=== PATIENT | female | born 1945 | race Caucasian/White ===

== ENCOUNTER 2017-06-07 13:17 | Emergency (ER) | payer MEDICARE ==
[2017-06-07] MEDS ORDERED: Iopamidol 370 76% 100 ML VIAL ONE (13:38)
[2017-06-07 14:15] LABS: #Lymphocytes 2.1 thou/uL (1.20-3.40); #Monocytes 0.5 thou/uL (0.11-0.59); %Basophils 0.4 % (0.0-1.0); %Eosinophils 0.1 % (0.0-10.0); %Lymphocytes 37.5 % (21.0-51.0); %Monocytes 8.4 % (0.0-10.0); Mean Platelet Volume 5.9 fL (7.4-10.4); Red Blood Cell (RBC) Count 4.01 mill/uL (4.20-5.40); White Blood Cell (WBC) Count 5.6 thou/uL (4.8-10.8)
[2017-06-07 14:19] LABS: Bilirubin Negative (Negative); Blood, Urine Negative (Negative); Glucose, Urine (Dipstick) Negative (Negative); Ketone, Urine Negative (Negative); Nitrite Negative (Negative); Protein, Urine (Dipstick) Negative (Neg-Trace); Urobilinogen 0.2 mg/dL (0.2-1.0)
[2017-06-07 14:37] LABS: ALT (SGPT) 23 U/L (8-55); AST (SGOT) 25 U/L (5-34); Alkaline Phosphatase 101 U/L (40-150); Anion Gap 11 mmol/L (10-20); BUN (Urea Nitrogen) 22 mg/dL (9.8-20.1); Bilirubin, Total 0.2 mg/dL (0.2-1.2); Calc. Creatinine Clearance 0 mL/min (70-130); Calcium 9.9 mg/dL (7.8-10.44); Carbon Dioxide 31 mmol/L (23-31); Chloride 102 mmol/L (98-107); Estimated GFR-MDRD 54; Globulin 3.3 g/dL (2.4-3.5); Lipase 82 U/L (8-78); Protein, Total 7.3 g/dL (6.0-8.3)
[2017-06-07 14:40] LABS: Troponin I Less than 0.010 ng/mL (< 0.028)
--- NOTE | 2017-06-07 15:59 | CT ---
CT OF ABDOMEN AND PELVIS PERFORMED WITH COTNRAST ENHANCEMENT: HISTORY: Intermittent left-sided abdomen pain x 3 days. FINDINGS: Lung bases show some chronic-appearing change. Small hiatal hernia is noted. Small hypodensity along the medial aspect of the right lobe of the liver, statistically most likely a cyst. The spleen, pancreas, and gallbladder regions appear unremarkable. Right and left adrenal glands and right and left kidneys are normal in size. Tiny hypodensity involv ing the left kidney is statistically most likely a small cyst. There is no significant periaortic or mesenteric lymphadenopathy. CT OF PELVIS PERFORMED WITH CONTRAST ENHANCEMENT: There is minimal sigmoid diverticulosis noted. I do not appreciate any inflammatory process. Append ix is normal. Review of osseous structures shows arthritic changes of the spine and postoperative changes at L5-S1. IMPRESSION: 1. Sigmoid diverticulosis. 2. Small hiatal hernia. 3. No acute abnormalities of the abdomen or pelvis. POS: ARLEN
--- NOTE | 2017-07-04 13:26 | EKG ---
Test Reason : Blood Pressure : / mmHG Vent. Rate : 066 BPM Atrial Rate : 066 BPM P-R Int : 136 ms QRS Dur : 092 ms QT Int : 406 ms P-R-T Axes : 111 -19 -24 degrees QTc Int : 425 ms Normal sinus rhythm Low voltage QRS Nonspecific T wave abnormality Abnormal ECG Confirmed by DANE HARRIS ([id number]), photographic editor RY MCGEE ([id number]) on 07/04/2017 1:26:13 PM Referred By: Confirmed By:DANE HARRIS
== END 2017-06-07 16:34 | disposition home or self-care (01) ==
LOC: ERS 13:17
DX: R10.13 Epigastric pain (principal); I10 Essential (primary) hypertension; F31.9 Bipolar disorder, unspecified; Z79.82 Long term (current) use of aspirin; Z79.899 Other long term (current) drug therapy
CPT/HCPCS: 36415; 74177; 80053; 81003; 82553; 83690; 84484; 85025; 93005

== ENCOUNTER 2018-05-19 08:31 | Outpatient (CLI) | payer MEDICARE ==
--- NOTE | 2018-05-19 13:41 | NM ---
CARDIAC SPECT: HISTORY: A 72-year-old female with chest pain, hypertension, and dyslipidemia. TECHNIQUE: A myocardial perfusion scan was performed using the single isotope one-day protocol with technetium 9 9m sestamibi, and 9 millicuries was injected intravenously for the rest exam, followed by 30 millicur ies for the stress study. Pharmacologic stress with adenosine was monitored and interpreted by Dr. Maggie castro. FINDINGS: Homogeneous tracer distribution is seen in the myocardial segments on stress and rest images without fixed or reversible defects. The TID ratio is 1.37. GATED SPECT LVEF: 80% WALL MOTION EXAM: Normal. IMPRESSION: TID ratio is 1.37. Clinical correlation is recommended. POS: CHATA
[2018-05-19] MEDS ORDERED: ADENOSINE 60 MG/20 ML VIAL ONE (16:31)
== END 2018-05-19 08:32 | disposition home or self-care (01) ==
LOC: NM 08:31
PROVIDERS: ATTEND Family Medicine
DX: R07.9 Chest pain, unspecified (principal)
CPT/HCPCS: 78452; 93017; A9500; J0153

== ENCOUNTER 2019-01-26 21:20 | Inpatient (IN) | payer MEDICARE ==
[~2019-01-26 21:20] MED LIST: ISOVUE-370 76%-LOCM 1 ML ONE
[2019-01-26] MEDS ORDERED: Ondansetron PF 4 MG/2 ML Vial ONE (21:51)
[2019-01-26 22:20] LABS: Band 17 % (5-11); Hemoglobin 12.6 g/dL (12.0-16.0); Lymphocytes 10 % (21-51); MDiff Complete? YES; Mean Corpuscular HGB CONC 32.2 g/dL (32.0-36.0); Mean Corpuscular Hemoglobin 32.5 pg (27.0-31.0); Monocytes 3 % (0-10); Neutrophil 70 % (42-75); Platelet Count 225 thou/uL (130-400); RBC Distribution Width 11.8 % (11.5-14.5); Red Blood Cell (RBC) Count 3.89 mill/uL (4.20-5.40); White Blood Cell (WBC) Count 5.7 thou/uL (4.8-10.8)
[2019-01-26 22:25] LABS: ALT (SGPT) 16 U/L (8-55); AST (SGOT) 20 U/L (5-34); Alkaline Phosphatase 101 U/L (40-150); Anion Gap 14 mmol/L (10-20); BUN (Urea Nitrogen) 24 mg/dL (9.8-20.1); Bilirubin, Total 0.4 mg/dL (0.2-1.2); Calc. Creatinine Clearance 0 mL/min (70-130); Calcium 9.8 mg/dL (7.8-10.44); Carbon Dioxide 28 mmol/L (23-31); Chloride 100 mmol/L (98-107); Estimated GFR-MDRD 62; Glucose 145 mg/dL (83-110); Lipase 56 U/L (8-78); Potassium 4.3 mmol/L (3.5-5.1); Sodium 138 mmol/L (136-145)
--- NOTE | 2019-01-26 22:57 | CT ---
CT abdomen and pelvis with IV contrast. Oral contrast was not administered. INDICATIONS: Abdominal pain COMPARISON: 06/07/2017 FINDINGS: Lung bases are clear Mild prominence of the intra and extrahepatic biliary ducts. Mild gallbladder distention. Spleen and pancreas unremarkable. Stomach and duodenum appear unremarkable. Adrenal glands appear normal. Kidneys appear unremarkable. Collecting structures and urinary bladder appear unremarkable. Small bowel loops are normal caliber and exhibit normal fold pattern. Appendix not definitely identified. Colon is unremarkable. Aorta is normal caliber. No evidence of retroperitoneal or mesenteric adenopathy. Patient appears to be post hysterectomy. Subcutaneous tissues, abdominal wall, and muscular structures appear unremarkable. Osseous structures appear unremarkable. IMPRESSION: Mild prominence of the intra and extrahepatic biliary ducts with gallbladder distention. No evidence of acute process.
--- NOTE | 2019-01-27 00:08 | ULT ---
GALLBLADDER ULTRASOUND: Date: 01/26/19 INDICATION: Right upper quadrant pain. FINDINGS: At least one echogenic mobile gallstone is seen within the gallbladder lumen. There is pericholecysti c edema. Gallbladder wall thickness is normal. The common duct is normal caliber. Technologist descri bes a positive Hill's sign. Small cyst in right lobe of liver. Pancreas is partially imaged and appears unremarkable. Right kidney shows mild fullness of the collec ting structures. IMPRESSION: 1. Cholelithiasis. Positive Hill's sign with evidence of pericholecystic edema. 2. Mild prominence to right renal collecting structures. POS: ARLEN
--- NOTE | 2019-01-27 01:23 | PDOC.FPRHP ---
- History of Present Illness Chief Complaint: Abdominal Pain History of Present Illness: 73yo female presents c/o abdominal pain. Daughter reports pt has dementia and bipolar disorder. She states that she developed sharp 10/10 abdominal pain tonight around 1700. This was accompanied by nausea, vomiting, and diarrhea. Pt and daughter states that pt has had symptoms like this before recently but never this bad. Workup in the ED confirmed cholecystitis which was complicated by hypotension that was responsive to fluids. Surgery consulted and said the pt will be put on for a lap estela later today. PMHx of HTN, HLD, Bipolar, and dementia. She denies . ED Course: ED: hypotension that responded to 1L NS bolus, CT abdomen and RUQ US that confirmed cholecystitis - Allergies/Adverse Reactions Allergies Allergy/AdvReac Type Severity Reaction Status Date / Time No Known Allergies Allergy Unverified 01/27/19 02:54 - Home Medications Medication Instructions Recorded Confirmed Type Aspirin [Ecotrin] 81 mg PO DAILY 01/27/19 01/27/19 History Donepezil HCl 1 tab PO BID 01/27/19 01/27/19 History Lamotrigine [lamoTRIgine] 1 tab PO HS 01/27/19 01/27/19 History Levothyroxine Sodium [Synthroid] 75 mcg PO DAILY 01/27/19 01/27/19 History Meloxicam [Mobic] 1 tab PO DAILY 01/27/19 01/27/19 History Memantine HCl 1 tab PO BID 01/27/19 01/27/19 History Omeprazole 20 mg PO DAILY 01/27/19 01/27/19 History Oxybutynin Chloride [Oxybutynin 5 mg PO DAILY 01/27/19 01/27/19 History Chloride ER] QUEtiapine Fumarate [Seroquel] 50 mg PO HS 01/27/19 01/27/19 History Simvastatin [Zocor] 1 tab PO HS 01/27/19 01/27/19 History Venlafaxine HCl [Venlafaxine HCl 2 cap PO DAILY 01/27/19 01/27/19 History ER] - History PMHx: hyperlipidemia, dementia, bipolar, hypothyroidism PSHx: thyroidectomy, back surgery, bunionectomies, hysterectomy, wrists surgery , lumpectomy FHx: none Social: quit smoking 15 years ago, occassional alcohol use, lives @ dependent living home - Review of Systems General: reports: fever/chills, weight/appetite/sleep changes (decreased appetite) Eyes: denies: eye pain, vision changes ENT: denies: nasal congestion, rhinorrhea Respiratory: denies: cough, shortness of breath Cardiovascular: denies: chest pain, edema Gastrointestinal: reports: nausea, vomiting, diarrhea, abdominal pain Genitourinary: denies: dysuria, polyuria Skin: denies: rashes, jaundice Musculoskeletal: denies: tenderness, swelling Neurological: denies: syncope, weakness - Vital signs BP: [92/59] HR: [72] RR: [18] Tmax: [98.9] Pox: [100]% on [room air] Wt: [] - Physical Exam Constitutional: NAD, awake, alert and oriented, well developed HEENT: normocephalic and atraumatic, EOMI, no scleral icterus Neck: supple, FROM Heart: RRR, normal S1/S2, no murmurs/rubs/gallops, pulses present, no edema Lungs: CTAB, no respiratory distress Abdomen: soft Musculoskeletal: normal structure, normal tone Neurological: no focal deficit -Neurological: Memory impairment, chronic per daughter Skin: no rash/lesions, no jaundice Heme/Lymphatic: no unusual bruising or bleeding Psychiatric: normal mood and affect FMR H&P: Results - Labs Result Diagrams: 01/27/19 04:35 01/27/19 04:35 Lab results: WBC 5.7 thou/uL (4.8-10.8) 01/26/19 21:50 Hgb 12.6 g/dL (12.0-16.0) 01/26/19 21:50 Hct 39.3 % (36.0-47.0) 01/26/19 21:50 MCV 101.0 fL (78.0-98.0) H 01/26/19 21:50 Plt Count 225 thou/uL (130-400) 01/26/19 21:50 Band Neuts % (Manual) 17 % (5-11) H 01/26/19 21:50 Sodium 138 mmol/L (136-145) 01/26/19 21:50 Potassium 4.3 mmol/L (3.5-5.1) 01/26/19 21:50 Chloride 100 mmol/L (98-107) 01/26/19 21:50 Carbon Dioxide 28 mmol/L (23-31) 01/26/19 21:50 BUN 24 mg/dL (9.8-20.1) H 01/26/19 21:50 Creatinine 0.89 mg/dL (0.6-1.1) 01/26/19 21:50 Glucose 145 mg/dL (83-110) H 01/26/19 21:50 Lactic Acid 2.0 mmol/L (0.5-2.2) 01/26/19 21:50 Calcium 9.8 mg/dL (7.8-10.44) 01/26/19 21:50 Total Bilirubin 0.4 mg/dL (0.2-1.2) 01/26/19 21:50 AST 20 U/L (5-34) 01/26/19 21:50 ALT 16 U/L (8-55) 01/26/19 21:50 Alkaline Phosphatase 101 U/L (40-150) 01/26/19 21:50 Serum Total Protein 7.0 g/dL (6.0-8.3) 01/26/19 21:50 Albumin 4.0 g/dL (3.4-4.8) 01/26/19 21:50 Lipase 56 U/L (8-78) 01/26/19 21:50 - Radiology Interpretation CT scan - abdomen Status: report reviewed by me (Intra/extraheptic duct congestion w/ gallbladder distension) US - abdomen Status: report reviewed by me (RUQ - cholelithiasis and pericholecystic fluid) FMR H&P: A/P - Problem List (1) Cholelithiasis and acute cholecystitis without obstruction Current Visit: Yes Status: Acute Code(s): K80.00 - CALCULUS OF GALLBLADDER W ACUTE CHOLECYST W/O OBSTRUCTION - Plan Cholecystitis Abd pain with N/V, CT abd: intra/extrahepatic duct prominence with GB distention , US RUQ: cholelithiasis with pericholecystic fluid. -Surgery consulted, plan for cholecystectomy tomorrow -Started on Zosyn -IV fluids Hypotension PMHx of HTN, initial BP in ED was 72/47 - responsive to 1L bolus -> 107/71 -Hold home BP meds at this time -Cont IV fluid resuscitation -Encourage PO intake as tolerated Hyperlipidemia FMR H&P: Upper Level - Pertinent history 73 year old female presents with sudden onset abdominal pain around 17:00. Patient poor historian secondary to dementia. Patient's daughter present at bedside providing information. Patient reportedly lives at an independent living center. She is fairly self sufficient per the daughter. Patient unable to describe location of pain or characterize pain. Patient has not had this pain before. She texted her daughter around 18:00 that she was not feeling well and was going to head to bed early. The daughter thought that was odd given the time. She later texted back at 21:00 saying that she was in severe pain and could no longer tolerate it which is what prompted her visit to the ED. She had several episodes of NBNB emesis and continues to have nausea. She had one episode of non-bloody diarrhea. Per daughter, patient has not had fever or chills recently. She was doing fine up until tonight. Patient does have bipolar disorder and dementia for which she takes several meds. She reportedly does not do well when these meds are skipped. - Pertinent findings General: Alert and communicative. She requested her daughter do the talking. HEENT: Atraumatic, normocephalic. EOMI. Card: RRR. No murmur. Resp: CTA-BL. No acute respiratory distress. Abdomen: Moderately tender to palpation throughout abdomen. Ext: No edema - Plan Date/Time: 01/27/19 0116 IPam, have evaluated this patient and agree with findings/plan as outlined by software engineer intern resident. Pertinent changes/additions are listed here. Cholecystitis - CT abdomen/pelvis: mild prominence of intrahepatic and extrahepatic biliary ducts with gallbladder distention - RUQ abdomen: Cholelithiasis with pericholecystic fluid - General surgery consulted; appreciate recs. Plan for cholecystectomy in AM - NPO in preparation for surgery - Continue Zosyn (01/26) - IVF LR @ 125 mL/hr - Procal pending - Episodes of hypotension s/p 1L NS bolus; will give additional 500 mL and start on maintenance IVF - Advised to call if patient endorsed nausea as patient has long QT and would like to monitor carefully when patient receiving QT prolonging drugs QT prolongation - Noted on EKG - Refrain from using QT prolonging agents if possible/monitor closely Bandemia - 17% bands - Likely 2/2 cholecystitis - Will trend CBC - Procal pending Hypotension - May be secondary to infection and morphine use - Will monitor closely. Additional boluses if needed - Maintenance IVF Hypothyroidism - Continue home medications - s/p thyroidectomy Dementia - Continue home meds Bipolar - Continue home meds HLD - Continue home meds DVT: SCD's Code Status: Full code Dispo: Admit to surgical unit. Anticipate lOS >48 hours. Addendum - Attending - Attending Attestation Date/Time: 01/27/19 3797 I personally evaluated the patient and discussed the management with Dr. Zhang. I agree with the History, Examination, Assessment and Plan documented above with any addition or exceptions noted below. The patient presented with acute onset of abdominal pain, nausea, vomiting and diarrhea. Imaging is consistent with cholecystitis. Will continue morphine for pain control. Gen surg has been consulted and will remove the gallbladder later today.
[2019-01-27] MEDS ORDERED: Morphine 4 MG/ML VIAL ONE (02:09)
[2019-01-27 02:54] VITALS: BMI 24.9
[2019-01-27] MEDS ORDERED: Sodium Chloride 0.9% 1,000 ML IV SCH (03:00)
[2019-01-27] MEDS ORDERED: Morphine 4 MG/ML VIAL SLOW IVP PRN ×2 (03:04→12:54)
[2019-01-27] MEDS ORDERED: Ondansetron ODT 4 MG TAB SL PRN (03:04)
[2019-01-27] MEDS ORDERED: Ondansetron PF 4 MG/2 ML Vial IVP PRN (03:04)
[2019-01-27] MEDS: Lactated Ringer's 1,000 ML IV SCH ×2 (03:07→12:33)
--- NOTE | 2019-01-27 04:34 | PDOC.EVN ---
Event Note - Event Note Event Note: Nurse notified team of dropping BP's after receiving morphine 4 mg. Will decrease to 2 mg prn for pain and discussed notifying team before next administration of morphine. Also, ordered 500 cc NS bolus. Nurse discussed administration of night time medications and daughter is fine waiting to restart medications until after surgery. Daughter was initially concerned her mother not receiving medications for bipolar/depression. Appreciate nursing staff's help. Reddy Lewis,
[2019-01-27] MEDS ORDERED: Morphine 2 MG/ML SYRINGE SLOW IVP PRN ×3 (04:48→12:54)
[2019-01-27] MEDS ORDERED: Sodium Chloride 0.9% 500 ML IVPB SCH (05:00)
[2019-01-27 05:24] LABS: Band 30 % (5-11); Lymphocytes 8 % (21-51); MDiff Complete? YES; Mean Corpuscular HGB CONC 32.1 g/dL (32.0-36.0); Mean Corpuscular Hemoglobin 32.5 pg (27.0-31.0); Mean Platelet Volume 6.3 fL (7.4-10.4); Monocytes 2 % (0-10); Neutrophil 60 % (42-75); Platelet Count 202 thou/uL (130-400); RBC Distribution Width 11.9 % (11.5-14.5); Red Blood Cell (RBC) Count 3.38 mill/uL (4.20-5.40); White Blood Cell (WBC) Count 7.2 thou/uL (4.8-10.8)
[2019-01-27 05:27] LABS: ALT (SGPT) 15 U/L (8-55); AST (SGOT) 24 U/L (5-34); Albumin 3.5 g/dL (3.4-4.8); Alkaline Phosphatase 80 U/L (40-150); Anion Gap 12 mmol/L (10-20); BUN (Urea Nitrogen) 21 mg/dL (9.8-20.1); Bilirubin, Total 0.5 mg/dL (0.2-1.2); Calc. Creatinine Clearance 64 mL/min (70-130); Carbon Dioxide 25 mmol/L (23-31); Chloride 104 mmol/L (98-107); Estimated GFR-MDRD 78; Globulin 2.6 g/dL (2.4-3.5); Glucose 116 mg/dL (83-110); Potassium 3.7 mmol/L (3.5-5.1); Protein, Total 6.1 g/dL (6.0-8.3); Sodium 137 mmol/L (136-145)
[2019-01-27] MEDS: Piperacillin/Tazobactam 4.5 GM in Sodium Chloride 0.9% 100 ML IVPB SCH ×2 (05:28→14:27)
[2019-01-27] MEDS: Levothyroxine Sodium 75 MCG TAB PO SCH (05:29)
[2019-01-27] MEDS: Oxybutynin ER 5 MG TAB PO SCH (08:19)
[2019-01-27] MEDS: Meloxicam 7.5 MG TAB PO SCH (08:19)
[2019-01-27] MEDS: Aspirin 81 mg Enteric Coated Tablet PO SCH (08:19)
[2019-01-27] MEDS: Donepezil HCl 10 MG TAB PO SCH ×2 (08:19→20:18)
[2019-01-27] MEDS: Venlafaxine HCl XR 150 MG CAP PO SCH (08:19)
[2019-01-27] MEDS: Acetaminophen 325 MG TAB PO PRN ×2 (08:28→20:18)
[2019-01-27] MEDS ORDERED: cefOXitin Sodium/Dextrose,Iso 2 GM in Premix Bag 1 BAG IVPB SCH (08:30)
[2019-01-27] MEDS ORDERED: Fentanyl 100 MCG/2 ML VIAL ONE (11:06)
[2019-01-27] MEDS ORDERED: Bupivacaine/Epinephrine 0.25% 30 ML VIAL ONE (11:24)
[2019-01-27] MEDS ORDERED: Sodium Chloride 0.9% 100 ML ONE (11:34)
[2019-01-27] MEDS ORDERED: cefOXitin 2 GM VIAL ONE (11:34)
[2019-01-27] MEDS ORDERED: Fentanyl 250 MCG/5 ML VIAL ONE (11:39)
[2019-01-27] MEDS ORDERED: Mag-Al 1200 mg/1200 mg/30 ML UDCUP PO PRN (12:54)
[2019-01-27] MEDS ORDERED: hydrALAZINE 20 MG/ML VIAL SLOW IVP PRN (12:54)
[2019-01-27] MEDS ORDERED: Calcium Carbonate 500 MG ChewTAB PO PRN (12:54)
[2019-01-27] MEDS ORDERED: Dextrose 50% Abboject 50 ML SYRINGE SLOW IVP PRN (12:54)
[2019-01-27] MEDS ORDERED: Dextrose 5% in Water 1,000 ML IV PRN (12:54)
[2019-01-27] MEDS ORDERED: Promethazine HCl 25 MG/ML VIAL IM PRN (12:54)
[2019-01-27] MEDS ORDERED: HYDROcodone/Acetaminophen 10/325 mg Tablet PO PRN (12:54)
[2019-01-27] MEDS: D5 1/2 NS w/20 mEq KCL 1,000 ML IV SCH ×2 (14:27→23:25)
--- NOTE | 2019-01-27 15:06 | OP ---
DATE OF PROCEDURE: 01/27/2019 PREOPERATIVE DIAGNOSIS: Acute cholecystitis. PROCEDURE PERFORMED: Laparoscopic cholecystectomy. INDICATIONS: The patient is a 73-year-old female, who presented with severe right upper quadrant pain radiating to back, associated with nausea. Ultrasound CT showed distended gallbladder with large stones impacted in the neck of the gallbladder. FINDINGS: Distended gallbladder, multiple adhesions, two large stones small cystic duct. DESCRIPTION OF PROCEDURE: After informed consent was obtained, the patient was taken to the preop area, where she was injected with a 0.5 mL of IC-Green to allow for visualization of the main bile ducts. This was chased by 10 mL of normal saline. She was then taken to the operating room, where she underwent general endotracheal anesthesia. She was placed in supine position. Abdomen was prepped and draped in usual fashion. Local anesthesia infiltrated subcutaneously and deep and a 12 mm incision was performed subumbilical. Subcu divided sharply. The fascia was grasped with 2 stay sutures of 0 Vicryl placed through side of midline. Midline incised. Digital palpation revealed no local adhesions. A blunt 12 trocar inserted. Pneumoperitoneum was created to a pressure of 15 mmHg. A 0 degree laparoscope inserted under direct vision. Three 5 mm ports were placed subcostally. The gallbladder was very distended. There were multiple adhesions to it. The adhesions were taken down sharply. Then, the gallbladder was punctured and 150 mL of bile removed into the gallbladder. The gallbladder was grasped, advanced superiorly, and the dissection was performed to dissect out the cystic duct artery in critical view. Special camera was then actuated that allowed us to visualized the bile ducts and confirmed that the common duct was separate from this cystic duct. The cystic duct was patent. The cystic duct was triply ligated with hemoclips and divided. The artery triply ligated with hemoclips and divided. The gallbladder removed from its fossa utilizing electrocautery. It was placed in endosac and removed from the abdomen in the endosac. Hemostasis assured. Trocars and retractors removed. The fascia closed with interrupted 0 Vicryl suture. The skin closed with interrupted 4-0 Rapide. Dermabond applied. The patient tolerated the procedure well, transferred to Recovery in good condition. Sponge and needle count verified correct x2. Job ID: [id number]
[2019-01-27] MEDS: Ketorolac Tromethamine 30 MG/ML VIAL IVP SCH ×2 (17:49→23:21)
[2019-01-27] MEDS: cefOXitin Sodium/Dextrose,Iso 2 GM in Premix Bag 1 BAG IVPB SCH (20:17)
[2019-01-27] MEDS: lamoTRIgine 100 MG TAB PO SCH (20:17)
[2019-01-27] MEDS: Atorvastatin Calcium 10 MG TAB PO SCH (20:18)
[2019-01-27] MEDS: Famotidine 20 MG TAB PO SCH (20:18)
[2019-01-27] MEDS: Famotidine/PF 20 mg/2ml Vial SLOW IVP SCH (20:19)
[2019-01-28] MEDS ORDERED: Sodium Chloride 0.9% 500 ML IV SCH ×2 (00:30→01:30)
--- NOTE | 2019-01-28 00:52 | PDOC.EVN ---
Event Note - Event Note Event Note: Was called by nurse for BP of 77/40. Ordered 500 bolus. Saw pt. Asymptomatic. Abdominal pain is 3/10. Denies fever, chills, diaphoresis, or SOB. Will recheck BP following fluids.
[2019-01-28] MEDS: cefOXitin Sodium/Dextrose,Iso 2 GM in Premix Bag 1 BAG IVPB SCH ×2 (04:16→13:48)
[2019-01-28 04:53] LABS: #Lymphocytes 0.7 thou/uL (1.20-3.40); #Monocytes 0.2 thou/uL (0.11-0.59); #Neutrophils 4.2 thou/uL (1.40-6.50); %Basophils 0.3 % (0.0-1.0); %Eosinophils 0.1 % (0.0-10.0); %Lymphocytes 13.8 % (21.0-51.0); %Monocytes 3.9 % (0.0-10.0); %Neutrophils 81.8 % (42.0-75.0); Hemoglobin 9.8 g/dL (12.0-16.0); Mean Corpuscular HGB CONC 33.5 g/dL (32.0-36.0); Mean Platelet Volume 6.1 fL (7.4-10.4); Platelet Count 168 thou/uL (130-400); RBC Distribution Width 11.9 % (11.5-14.5); Red Blood Cell (RBC) Count 2.89 mill/uL (4.20-5.40); White Blood Cell (WBC) Count 5.2 thou/uL (4.8-10.8)
[2019-01-28 05:14] LABS: ALT (SGPT) 44 U/L (8-55); AST (SGOT) 59 U/L (5-34); Albumin 2.7 g/dL (3.4-4.8); Alkaline Phosphatase 65 U/L (40-150); Anion Gap 6 mmol/L (10-20); BUN (Urea Nitrogen) 10 mg/dL (9.8-20.1); Bilirubin, Total 0.3 mg/dL (0.2-1.2); Calc. Creatinine Clearance 65 mL/min (70-130); Calcium 8.2 mg/dL (7.8-10.44); Carbon Dioxide 25 mmol/L (23-31); Chloride 112 mmol/L (98-107); Estimated GFR-MDRD 81; Globulin 2.3 g/dL (2.4-3.5); Glucose 109 mg/dL (83-110); Lipase 9 U/L (8-78); Potassium 3.7 mmol/L (3.5-5.1); Sodium 139 mmol/L (136-145)
[2019-01-28] MEDS: Levothyroxine Sodium 75 MCG TAB PO SCH (05:28)
[2019-01-28] MEDS: Ketorolac Tromethamine 30 MG/ML VIAL IVP SCH ×4 (05:28→23:07)
[2019-01-28] MEDS: D5 1/2 NS w/20 mEq KCL 1,000 ML IV SCH ×3 (06:30→20:10)
--- NOTE | 2019-01-28 07:24 | PDOC.FM ---
- Subjective Subjective: Pt states her abdominal pain is much improved. She has tolerated full liquids well. Denies nausea and vomiting. - Objective MAR Reviewed: Yes Vital Signs & Weight: Vital Signs (12 hours) Temp Pulse Resp BP Pulse Ox 01/28/19 04:27 98.6 F 75 16 80/43 L 94 L 01/28/19 02:35 87 81/49 L 01/28/19 01:31 76/42 L 01/27/19 23:57 98.6 F 80 16 77/40 L 94 L 01/27/19 20:00 98.5 F 88 16 90/55 L 95 Weight Weight 57.878 kg I&O: 01/27/19 01/28/19 01/29/19 06:59 06:59 06:59 Intake Total 894 4540 Balance 894 4540 Result Diagrams: 01/28/19 04:22 01/28/19 04:22 Phys Exam - Physical Examination Constitutional: NAD HEENT: moist MMs Neck: no JVD Respiratory: no wheezing, clear to auscultation bilateral Cardiovascular: RRR, no significant murmur Gastrointestinal: soft, positive bowel sounds Laproscopic incisions with out signs of infection Musculoskeletal: no edema, pulses present Neurological: moves all 4 limbs Deviation from normal: confused but baseline Skin: cap refill <2 seconds Dx/Plan (1) Cholelithiasis and acute cholecystitis without obstruction Code(s): K80.00 - CALCULUS OF GALLBLADDER W ACUTE CHOLECYST W/O OBSTRUCTION Status: Acute - Plan Plan: This is a 73 yo female with a pmh of HLD, dementia, bipolar, and hypothyroidsm Acute cholecystitis with cholelithiasis, s/p cholecystectomy -Pain control with tylenol and morphine -Advance diet -plan for discharge today barring no events Hypotension -Pt given two 500 L bolus of NS with improving BPs HLD -Continue home meds Dementia -Continue home meds Bipolar -Continue home meds Hypothyroidism -Continue home meds. Addendum - Attending - Attending Attestation Date/Time: 01/28/19 1240 I personally evaluated the patient and discussed the management with Dr. Jones. I agree with the History, Examination, Assessment and Plan documented above with any addition or exceptions noted below. Pt doing well s/p lap estela. Tolerated regular breakfast. Will d/c home.
--- NOTE | 2019-01-28 09:17 | PRG ---
DATE OF SERVICE: 01/28/2019 SUBJECTIVE: The patient states she is upset because she had a very loose bowel movement and had an accident. She needs to be cleaned up. She says she has no pain, no nausea or vomiting. She is tolerating diet well. OBJECTIVE: VITAL SIGNS: Temperature 98.6, pulse 75, blood pressure 80/43. GENERAL: She is sitting up. She is somewhat confused, which is baseline for her. ABDOMEN: Soft, nondistended. The incisions are healing well. LABORATORY DATA: White count 5.2, H and H 9.8 and 29, and platelet count 168. Electrolytes are fine. ASSESSMENT: Status post cholecystectomy with dementia. PLAN: No further surgical treatment needed. Further treatment per medical team. Job ID: [id number]
[2019-01-28] MEDS: Aspirin 81 mg Enteric Coated Tablet PO SCH (09:45)
[2019-01-28] MEDS: Famotidine 20 MG TAB PO SCH ×2 (09:45→20:15)
[2019-01-28] MEDS: Venlafaxine HCl XR 150 MG CAP PO SCH (09:45)
[2019-01-28] MEDS: Meloxicam 7.5 MG TAB PO SCH (09:45)
[2019-01-28] MEDS: Oxybutynin ER 5 MG TAB PO SCH (09:46)
[2019-01-28] MEDS: Donepezil HCl 10 MG TAB PO SCH ×2 (09:46→20:16)
[2019-01-28] MEDS: Famotidine/PF 20 mg/2ml Vial SLOW IVP SCH ×2 (10:02→20:16)
[2019-01-28] MEDS: Enoxaparin Sodium 40 MG/0.4 ML SYRINGE SC SCH (10:02)
[2019-01-28] MEDS: HYDROcodone/Acetaminophen 10/325 mg Tablet PO PRN (13:44)
[2019-01-28] MEDS: cefTRIAXone\\ROCEPHIN 2 GM in Sodium Chloride 0.9% 100 ML IVPB SCH (17:04)
[2019-01-28] MEDS ORDERED: Piperacillin/Tazobactam 3.375 GM in Sodium Chloride 0.9% 100 ML IVPB SCH (18:00)
[2019-01-28] MEDS: lamoTRIgine 100 MG TAB PO SCH (20:13)
[2019-01-28] MEDS: Atorvastatin Calcium 10 MG TAB PO SCH (20:15)
[2019-01-28] MEDS: cefOXitin 2 GM in Sodium Chloride 0.9% 100 ML IVPB SCH (20:59)
[2019-01-28 23:12] LABS: Bacteria/HPF None Seen HPF (None Seen); Mucous/LPF Rare LPF (<2+); Squamous Epithelial None Seen HPF (0-3); WBC/HPF 0-3 HPF (0-3)
[2019-01-29] MEDS: cefOXitin 2 GM in Sodium Chloride 0.9% 100 ML IVPB SCH ×2 (03:34→11:52)
[2019-01-29] MEDS: D5 1/2 NS w/20 mEq KCL 1,000 ML IV SCH ×2 (05:29→14:29)
[2019-01-29] MEDS: Ketorolac Tromethamine 30 MG/ML VIAL IVP SCH ×2 (05:32→11:51)
[2019-01-29] MEDS: Levothyroxine Sodium 75 MCG TAB PO SCH (05:33)
--- NOTE | 2019-01-29 07:14 | PDOC.FM ---
- Subjective Subjective: No complaints overnight. She denies fever, chills, nausea, vomiting, or chest pain. Reports some abdominal pain with movement. - Objective MAR Reviewed: Yes Vital Signs & Weight: Vital Signs (12 hours) Temp Pulse Resp BP Pulse Ox 01/29/19 05:46 94 L 01/29/19 03:42 98.8 F 80 16 100/62 94 L 01/28/19 23:46 98.9 F 97 16 99/66 95 01/28/19 20:05 98.9 F 82 16 107/61 94 L Weight Weight 57.878 kg I&O: 01/28/19 01/29/19 01/30/19 06:59 06:59 06:59 Intake Total 4540 1800 Balance 4540 1800 Result Diagrams: 01/28/19 04:22 01/28/19 04:22 Phys Exam - Physical Examination Constitutional: NAD HEENT: moist MMs Neck: no JVD Respiratory: no wheezing Mild crackles at base, likely atelectasis Cardiovascular: RRR, no significant murmur, no rub Gastrointestinal: soft, no distention, positive bowel sounds Appropriate ttp Musculoskeletal: no edema, pulses present Neurological: non-focal, moves all 4 limbs Psychiatric: A&O x 3 Skin: cap refill <2 seconds Dx/Plan (1) Cholelithiasis and acute cholecystitis without obstruction Code(s): K80.00 - CALCULUS OF GALLBLADDER W ACUTE CHOLECYST W/O OBSTRUCTION Status: Acute - Plan Plan: This is a 73 yo female with a pmh of HLD, dementia, bipolar, and hypothyroidsm Acute cholecystitis with cholelithiasis, POD2 cholecystectomy -Pain control with tylenol and morphine -Advance diet -plan for discharge today barring no events Bacteremia, 2/2 blood cultures show gram stain positive for gram negative cocci -Pending Culture and sensitivities -Currently on rocephin -Plan to consult ID for further recommendations Hypotension, stable -Pt given two 500 L bolus of NS with improving BPs HLD -Continue home meds Dementia -Continue home meds Bipolar -Continue home meds Hypothyroidism -Continue home meds. Addendum - Attending - Attending Attestation Date/Time: 01/29/19 5558 I personally evaluated the patient and discussed the management with Dr. Jones. I agree with the History, Examination, Assessment and Plan documented above with any addition or exceptions noted below. Patient with newly diagnosed bacteremia with 2/2 blood cultures positive. She will remain on IV antibiotics as we await final cultures and sensitivities. Consulted PT to help with ambulation.
[2019-01-29] MEDS: Donepezil HCl 10 MG TAB PO SCH ×2 (07:29→20:23)
[2019-01-29] MEDS: Oxybutynin ER 5 MG TAB PO SCH (07:29)
[2019-01-29] MEDS: Aspirin 81 mg Enteric Coated Tablet PO SCH (07:29)
[2019-01-29] MEDS: Famotidine 20 MG TAB PO SCH ×2 (07:29→20:23)
[2019-01-29] MEDS: Meloxicam 7.5 MG TAB PO SCH (07:29)
[2019-01-29] MEDS: Venlafaxine HCl XR 150 MG CAP PO SCH (07:29)
[2019-01-29] MEDS: Enoxaparin Sodium 40 MG/0.4 ML SYRINGE SC SCH (08:18)
[2019-01-29] MEDS: Famotidine/PF 20 mg/2ml Vial SLOW IVP SCH ×2 (09:26→20:23)
--- NOTE | 2019-01-29 09:47 | PRG ---
DATE OF SERVICE: 01/29/2019 SUBJECTIVE: The patient feels better today, less pain, tolerating a regular diet. OBJECTIVE: VITAL SIGNS: Temperature 98.7, pulse 87, blood pressure 112/78. GENERAL: She is awake, alert, in no apparent distress. HEENT: No jaundice. ABDOMEN: Soft. Nondistended. Incision is healing well. LABORATORY DATA: White count 5.2, H and H of 9.8 and 29, and platelet count of 168. Electrolytes, slightly elevated AST at 59, otherwise fine. ASSESSMENT: Status post laparoscopic cholecystectomy for acute cholecystitis. PLAN: Discharge when medically stable by the Family Practice service. Make sure to send her home on some oral antibiotics for 10 days. Follow up with me in 2 weeks. Job ID: [id number]
[2019-01-29] MEDS: cefTRIAXone\\ROCEPHIN 2 GM in Sodium Chloride 0.9% 100 ML IVPB SCH (15:06)
[2019-01-29] MEDS: HYDROcodone/Acetaminophen 10/325 mg Tablet PO PRN (15:54)
[2019-01-29] MEDS: metroNIDAZOLE 500 MG in Premix Bag 1 BAG IVPB SCH (18:30)
[2019-01-29] MEDS: lamoTRIgine 100 MG TAB PO SCH (20:22)
[2019-01-29] MEDS: Atorvastatin Calcium 10 MG TAB PO SCH (20:23)
[2019-01-30] MEDS: metroNIDAZOLE 500 MG in Premix Bag 1 BAG IVPB SCH ×4 (00:02→17:15)
[2019-01-30] MEDS: D5 1/2 NS w/20 mEq KCL 1,000 ML IV SCH ×2 (00:05→09:41)
[2019-01-30] MEDS: Levothyroxine Sodium 75 MCG TAB PO SCH (05:59)
--- NOTE | 2019-01-30 05:59 | PDOC.FM ---
- Subjective Subjective: Pt was worried about an episode of incontinence overnight. She was tearful regarding this incident. No other events overnight. - Objective MAR Reviewed: Yes Vital Signs & Weight: Vital Signs (12 hours) Temp Pulse Resp BP Pulse Ox 01/30/19 04:10 99.3 F 91 16 134/85 93 L 01/30/19 00:06 97.8 F 82 16 135/84 95 01/29/19 20:25 98.5 F 73 18 100/65 94 L 01/29/19 20:00 98.6 F 84 16 148/88 H 95 Weight Weight 57.878 kg I&O: 01/28/19 01/29/19 01/30/19 06:59 06:59 06:59 Intake Total 4540 1800 Balance 4540 1800 Result Diagrams: 01/28/19 04:22 01/28/19 04:22 Phys Exam - Physical Examination Constitutional: NAD HEENT: moist MMs Neck: no JVD Respiratory: no wheezing, clear to auscultation bilateral No crackles this AM, improved from yesterday Cardiovascular: RRR, no significant murmur Gastrointestinal: soft, non-tender, no distention, positive bowel sounds Musculoskeletal: no edema, pulses present Neurological: moves all 4 limbs Psychiatric: A&O x 3 Skin: cap refill <2 seconds Dx/Plan (1) Cholelithiasis and acute cholecystitis without obstruction Code(s): K80.00 - CALCULUS OF GALLBLADDER W ACUTE CHOLECYST W/O OBSTRUCTION Status: Acute - Plan Plan: This is a 73 yo female with a pmh of HLD, dementia, bipolar, and hypothyroidsm Acute cholecystitis with cholelithiasis, POD3 cholecystectomy -Pain control with tylenol and morphine Bacteremia, 2/2 blood cultures likely anaerobes -Pending Culture and sensitivities -Currently on rocephin (01/28) and metronidazole (01/29) -Plan to consult ID for further recommendation when cultures result Hypotension, resolved HLD -Continue home meds Dementia -Continue home meds Bipolar -Continue home meds Hypothyroidism -Continue home meds Addendum - Attending - Attending Attestation Date/Time: 01/30/19 [id number] I personally evaluated the patient and discussed the management with Dr. Jones. I agree with the History, Examination, Assessment and Plan documented above with any addition or exceptions noted below. Urine culture is negative. Blood cultures still haven't finalized. Continue antibiotics, pain control.
[2019-01-30] MEDS: Aspirin 81 mg Enteric Coated Tablet PO SCH (09:40)
[2019-01-30] MEDS: Meloxicam 7.5 MG TAB PO SCH (09:40)
[2019-01-30] MEDS: Donepezil HCl 10 MG TAB PO SCH (09:40)
[2019-01-30] MEDS: Venlafaxine HCl XR 150 MG CAP PO SCH (09:40)
[2019-01-30] MEDS: Famotidine 20 MG TAB PO SCH (09:40)
[2019-01-30] MEDS: Oxybutynin ER 5 MG TAB PO SCH (09:40)
[2019-01-30] MEDS: Famotidine/PF 20 mg/2ml Vial SLOW IVP SCH (09:41)
[2019-01-30] MEDS: Enoxaparin Sodium 40 MG/0.4 ML SYRINGE SC SCH (12:27)
[2019-01-30] MEDS ORDERED: Lorazepam 2 MG/ML VIAL SLOW IVP PRN (13:25)
[2019-01-30] MEDS: cefTRIAXone\\ROCEPHIN 2 GM in Sodium Chloride 0.9% 100 ML IVPB SCH (15:06)
[2019-01-30 15:47] VITALS: BP 132/80; TEMP 98.6
[2019-01-31] MEDS ORDERED: Enoxaparin Sodium 40 MG/0.4 ML SYRINGE SC SCH (09:00)
== END 2019-01-30 19:15 | disposition home or self-care (01) | DRG 419 ==
LOC: ERS 21:20 → SURG A 01-27 01:13
PROVIDERS: ADMIT Student in an Organized Health Care Education/Training Program; ATTEND Student in an Organized Health Care Education/Training Program
PROC: 0FT44ZZ Resection of Gallbladder, Percutaneous Endoscopic Approach (ICD-10-PCS; principal; 2019-01-27)
DX: K80.00 Calculus of gallbladder with acute cholecystitis without obstruction (principal); K59.00 Constipation, unspecified; F31.9 Bipolar disorder, unspecified; E78.5 Hyperlipidemia, unspecified; F03.90 Unspecified dementia, unspecified severity, without behavioral disturbance, psychotic disturbance, mood disturbance, and anxiety; I95.9 Hypotension, unspecified; Z90.710 Acquired absence of both cervix and uterus
CPT/HCPCS: 36415; 74177; 76705; 80053; 81015; 83605; 83690; 84145; 85025; 87040; 87076; 87086; 87149; 88304; 93005; 96361; 96365; 96375; J0694; J0696; J1650; J1885; J2270; J2405; J2543; J3010; J3490; Q9966; S0028

== ENCOUNTER 2019-09-03 15:37 | Emergency (ER) | payer MEDICARE ==
--- NOTE | 2019-09-03 17:13 | CT ---
Exam: CT brain PROVIDED CLINICAL HISTORY: Head injury COMPARISON: 05/17/2016 FINDINGS: The ventricular system is normal in size and morphology. No evidence for intracranial hemorrhage or mass effect. Right parietal scalp swelling without evidence for skull fracture. IMPRESSION: No evidence for intracranial hemorrhage or mass effect.
--- NOTE | 2019-09-03 17:16 | CT ---
EXAM: CT cervical spine PROVIDED CLINICAL HISTORY: Head injury COMPARISON: 05/17/2016 FINDINGS: No evidence for fracture or traumatic subluxation. No prevertebral soft tissue swelling apparent. Vi sualized lung apices appear clear. Advanced cervical degenerative changes are redemonstrated. 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 IMPRESSION: No evidence for fracture or traumatic subluxation.
== END 2019-09-03 18:35 | disposition home or self-care (01) ==
LOC: ERS 15:37
DX: S00.93XA Contusion of unspecified part of head, initial encounter (principal); E78.5 Hyperlipidemia, unspecified; I10 Essential (primary) hypertension; F03.90 Unspecified dementia, unspecified severity, without behavioral disturbance, psychotic disturbance, mood disturbance, and anxiety; F31.9 Bipolar disorder, unspecified; W01.10XA Fall on same level from slipping, tripping and stumbling with subsequent striking against unspecified object, initial encounter
CPT/HCPCS: 70450; 72125

== ENCOUNTER 2020-11-05 10:31 | Observation (INO) | payer MEDICARE ==
[2020-11-05 11:31] LABS: #Basophils 0.1 thou/uL (0.0-0.2); #Lymphocytes 1.9 thou/uL (1.20-3.40); #Monocytes 0.7 thou/uL (0.11-0.59); #Neutrophils 9.3 thou/uL (1.40-6.50); %Basophils 0.5 % (0.0-1.0); %Eosinophils 0.2 % (0.0-10.0); %Lymphocytes 16.1 % (21.0-51.0); %Monocytes 6.1 % (0.0-10.0); %Neutrophils 77.2 % (42.0-75.0); Hemoglobin 13.7 g/dL (12.0-16.0); Mean Corpuscular HGB CONC 33.1 g/dL (32.0-36.0); Mean Platelet Volume 6.3 fL (7.4-10.4); Platelet Count 233 thou/uL (130-400); RBC Distribution Width 11.2 % (11.5-14.5); Red Blood Cell (RBC) Count 4.04 mill/uL (4.20-5.40); White Blood Cell (WBC) Count 12.1 thou/uL (4.8-10.8)
[2020-11-05 11:51] LABS: ALT (SGPT) 14 U/L (8-55); AST (SGOT) 19 U/L (5-34); Albumin 4.1 g/dL (3.4-4.8); Alkaline Phosphatase 93 U/L (40-110); Anion Gap 15 mmol/L (10-20); BUN (Urea Nitrogen) 17 mg/dL (9.8-20.1); Bilirubin, Total 0.3 mg/dL (0.2-1.2); Calc. Creatinine Clearance 0 mL/min (70-130); Calcium 9.6 mg/dL (7.8-10.44); Carbon Dioxide 26 mmol/L (23-31); Chloride 102 mmol/L (98-107); Globulin 2.9 g/dL (2.4-3.5); Glucose 105 mg/dL (83-110); Lipase 34 U/L (8-78); Potassium 3.5 mmol/L (3.5-5.1); Sodium 139 mmol/L (136-145)
[2020-11-05] MEDS ORDERED: Acetaminophen 325 MG TAB PO PRN (13:05)
[2020-11-05] MEDS ORDERED: Ondansetron PF 4 MG/2 ML Vial IVP PRN (13:05)
[2020-11-05] MEDS ORDERED: Ondansetron ODT 4 MG TAB PO PRN (13:05)
[2020-11-05 14:34] LABS: Lactic Acid 2.9 mmol/L (0.5-2.2)
[2020-11-05 15:05] VITALS: BMI 28.7
[2020-11-05] MEDS: Venlafaxine HCl XR 75 MG CAP PO SCH (15:36)
[2020-11-05] MEDS: Lactated Ringer's 1,000 ML IV SCH (15:36)
[2020-11-05 16:23] LABS: Bacteria/HPF None Seen HPF (None Seen); Bilirubin Negative (Negative); Blood, Urine Negative (Negative); Clarity Clear (Clear); Glucose, Urine (Dipstick) Normal (Negative); Ketone, Urine Negative (Negative); Leukocyte Negative Leu/uL (Negative); Nitrite Negative (Negative); Protein, Urine (Dipstick) Negative (Neg-Trace); RBC/HPF 0-3 HPF (0-3); Specific Gravity, Urine 1.009 (1.002-1.036); Squamous Epithelial None Seen HPF (0-3); Urobilinogen Normal mg/dL (Less than 2); WBC/HPF 0-3 HPF (0-3); pH, Urine 7.5 (5.0-9.0)
[2020-11-05 16:24] LABS: Urine Culture Reflex No No
[2020-11-05] MEDS: Donepezil HCl 10 MG TAB PO SCH (20:34)
[2020-11-05] MEDS ORDERED: lamoTRIgine 100 MG TAB PO SCH (21:00)
[2020-11-05] MEDS ORDERED: Atorvastatin Calcium 10 MG TAB PO SCH (21:00)
[2020-11-06] MEDS: Lactated Ringer's 1,000 ML IV SCH (00:30)
[2020-11-06 05:37] LABS: #Lymphocytes 1.8 thou/uL (1.20-3.40); #Monocytes 0.5 thou/uL (0.11-0.59); #Neutrophils 4.4 thou/uL (1.40-6.50); %Basophils 0.4 % (0.0-1.0); %Eosinophils 0.2 % (0.0-10.0); %Neutrophils 65.5 % (42.0-75.0); Hemoglobin 12.1 g/dL (12.0-16.0); Mean Corpuscular HGB CONC 32.7 g/dL (32.0-36.0); Mean Corpuscular Hemoglobin 33.8 pg (27.0-31.0); Mean Platelet Volume 6.3 fL (7.4-10.4); Platelet Count 219 thou/uL (130-400); RBC Distribution Width 11.3 % (11.5-14.5); Red Blood Cell (RBC) Count 3.58 mill/uL (4.20-5.40); White Blood Cell (WBC) Count 6.8 thou/uL (4.8-10.8)
[2020-11-06] MEDS ORDERED: Levothyroxine Sodium 75 MCG TAB PO SCH (06:00)
[2020-11-06 06:08] LABS: Anion Gap 10 mmol/L (10-20); BUN (Urea Nitrogen) 9 mg/dL (9.8-20.1); Calc. Creatinine Clearance 71 mL/min (70-130); Calcium 8.7 mg/dL (7.8-10.44); Carbon Dioxide 27 mmol/L (23-31); Chloride 109 mmol/L (98-107); Glucose 84 mg/dL (83-110); Potassium 3.7 mmol/L (3.5-5.1); Sodium 142 mmol/L (136-145)
[2020-11-06] MEDS: Venlafaxine HCl XR 75 MG CAP PO SCH (08:53)
[2020-11-06] MEDS: Donepezil HCl 10 MG TAB PO SCH (08:54)
[2020-11-06] MEDS ORDERED: Aspirin 81 mg Enteric Coated Tablet PO SCH (09:00)
[2020-11-06] MEDS ORDERED: risperiDONE 1 MG TAB PO SCH (09:00)
[2020-11-06] MEDS ORDERED: Loratadine 10 MG TAB PO SCH (09:00)
[2020-11-06 09:37] LABS: Lactic Acid 1.6 mmol/L (0.5-2.2)
[2020-11-06 14:07] VITALS: BP 106/72; TEMP 97.9
[2020-11-06] MEDS ORDERED: Enoxaparin Sodium 40 MG/0.4 ML SYRINGE SC SCH (21:00)
== END 2020-11-06 13:52 ==
LOC: ERS 10:31 → T4-A 12:44
PROVIDERS: ADMIT Family Medicine; ATTEND Family Medicine
DX: E86.0 Dehydration (principal); E87.8 Other disorders of electrolyte and fluid balance, not elsewhere classified; E87.2 Acidosis; R53.1 Weakness; G30.9 Alzheimer's disease, unspecified; F02.80 Dementia in other diseases classified elsewhere, unspecified severity, without behavioral disturbance, psychotic disturbance, mood disturbance, and anxiety; E78.5 Hyperlipidemia, unspecified; I10 Essential (primary) hypertension; E89.0 Postprocedural hypothyroidism; M19.90 Unspecified osteoarthritis, unspecified site; E55.9 Vitamin D deficiency, unspecified; E86.1 Hypovolemia; Z79.1 Long term (current) use of non-steroidal anti-inflammatories (NSAID); Z79.82 Long term (current) use of aspirin; Z79.899 Other long term (current) drug therapy; Z88.1 Allergy status to other antibiotic agents; Z88.2 Allergy status to sulfonamides
CPT/HCPCS: 70450; 72125; 80048; 81001; 83605 ×2; 83690; 84145; 84484; 85025; 93005; 97139; 99285; G0378 ×3; 36415; 80053; 84443